=== PATIENT | male | born 1970 | race Caucasian/White ===

== ENCOUNTER 2024-02-16 13:38 | Inpatient (IN) | payer OTHER ==
[2024-02-16 14:04] VITALS: BMI 22.2
[2024-02-16] MEDS ORDERED: MAGNESIUM HYDROX 2400MG/30ML ORAL SUSPENSION 30 ML CUP PO PRN (15:56)
[2024-02-16] MEDS ORDERED: IBUPROFEN 400 MG TABLET (FP) PO PRN (15:56)
[2024-02-16] MEDS ORDERED: NALOXONE HCL 0.4 MG/ML VIAL IM PRN (15:56)
[2024-02-16] MEDS ORDERED: LOPERAMIDE HCL 2 MG CAPSULE PO PRN (15:56)
[2024-02-16] MEDS ORDERED: BENZOCAINE/MENTHOL (CHLORASEPTIC ) LOZENGE MM PRN (15:56)
[2024-02-16] MEDS ORDERED: MAG HYDROX/AL HYDROX/SIMETH 30 ML UNIT-DOSE CUP PO PRN (15:56)
[2024-02-16] MEDS ORDERED: POLYETHYLENE GLYCOL (HEALTHYLAX) 3350 17 GM PACKET PO PRN (15:56)
[2024-02-16] MEDS ORDERED: DICYCLOMINE HCL 10 MG CAPSULE PO PRN (15:56)
[2024-02-16] MEDS ORDERED: ACETAMINOPHEN 325 MG TABLET (FP) PO PRN (15:56)
[2024-02-16] MEDS ORDERED: IBUPROFEN 600 MG TABLET (FP) PO PRN (15:56)
[2024-02-16] MEDS ORDERED: BENZONATATE 200 MG CAPSULE PO PRN (15:56)
[2024-02-16] MEDS ORDERED: NALOXONE (NARCAN) HCL 4 MG/0.1 ML SPRAY NS PRN (15:56)
[2024-02-16] MEDS ORDERED: guaiFENesin 600 MG TABLET.ER (FP) PO PRN (15:56)
[2024-02-16] MEDS: TRIMETHOBENZAMIDE HCL 200MG/2ML INJ IM ONE (16:07)
[2024-02-16] MEDS: PRENATAL VITAMINS W/ FOLIC ACID TABLET (FP) PO SCH (17:31)
[2024-02-16] MEDS: methaDONE 40 MG, methaDONE 20 MG PO ONE (17:32)
[2024-02-16] MEDS: NICOTINE 14 MG/24 HOURS TOPICAL PATCH TD SCH (17:35)
[2024-02-16] MEDS: methaDONE HCL 10 MG TABLET PO ONE (17:44)
[2024-02-16] MEDS: BISMUTH SUBSALICYLATE 524 MG/30 ML PO PRN (18:00)
[2024-02-16] MEDS: THIAMINE 100 MG TABLET PO SCH (21:11)
[2024-02-16] MEDS: MELATONIN 5 MG TABLETS PO SCH (21:11)
[2024-02-16] MEDS: METHOCARBAMOL 500 MG TABLET PO PRN (21:11)
[2024-02-17] MEDS: methaDONE 40 MG, methaDONE 20 MG PO SCH (06:12)
[2024-02-17] MEDS ORDERED: methaDONE HCL 10 MG TABLET PO SCH (10:00)
[2024-02-17] MEDS: BICTEGRAV/EMTRICIT/TENOFOV (BIKTARVY) 50-200-25 MG TABLET PO SCH (10:36)
[2024-02-17 11:24] LABS: POTASSIUM 3.6 mmol/L (3.5-5.1)
[2024-02-17 11:37] LABS: ALBUMIN 3.8 g/dl (3.4-5.0); BLOOD UREA NITROGEN 18.7 mg/dL (7-18); CALCIUM 9.1 mg/dL (8.5-10.1)
[2024-02-17 11:39] LABS: CREATININE 1.2 mg/dL (0.55-1.3)
[2024-02-17 11:41] LABS: BILIRUBIN,TOTAL 0.9 mg/dL (0.2-1); TOT PROT 7.3 g/dl (6.4-8.2)
[2024-02-17 11:45] LABS: HEMATOCRIT 38.9 % (35.4-49); HEMOGLOBIN 12.6 GM/dL (11.7-16.9); MCH 25.2 pg (25.7-33.7); MCHC 32.5 g/dl (32.0-35.9); MEAN CELL VOLUME 77.5 fl (80-96); MEAN PLT VOLUME 7.2 fl (7.5-11.1); PLATELET COUNT 335 10^3/uL (134-434); RBC 5.02 M/mm3 (4.00-5.60); WHITE BLOOD COUNT 7.3 K/mm3 (4.0-10.0)
[2024-02-17] MEDS: methaDONE HCL 10 MG TABLET PO ONE (11:55)
[2024-02-17] MEDS: ONDANSETRON *ODT* 4 MG TABLET SL PRN (20:26)
[2024-02-18] MEDS: methaDONE HCL 40 MG DISPERSABLE TABLET PO ONE (09:23)
[2024-02-18] MEDS ORDERED: methaDONE HCL 40 MG DISPERSABLE TABLET PO ONE ×2 (10:00→11:23)
[2024-02-19 00:40] LABS: URINE APPEARANCE CLEAR; URINE BILIRUBIN NEGATIVE (NEGATIVE); URINE COLOR YELLOW; URINE GLUCOSE (UA) NEGATIVE (NEGATIVE); URINE KETONE NEGATIVE (NEGATIVE); URINE LEUK ESTERASE NEGATIVE (NEGATIVE); URINE NITRITE NEGATIVE (NEGATIVE); URINE PROTEIN NEGATIVE (NEGATIVE); URINE UROBILINOGEN 0.2 mg/dL (0.2-1.0)
[2024-02-19] MEDS: methaDONE 80 MG, methaDONE 10 MG PO ONE (08:50)
[2024-02-19] MEDS ORDERED: methaDONE 80 MG, methaDONE 10 MG PO ONE ×2 (10:00→11:25)
[2024-02-19] MEDS ORDERED: methaDONE HCL 10 MG TABLET PO ONE ×2 (10:00→11:25)
[2024-02-19 16:44] VITALS: RESP 16
[2024-02-19] MEDS: hydrOXYzine PAMOATE 25 MG CAPSULE (FP) PO PRN (22:07)
[2024-02-20] MEDS: methaDONE 80 MG, methaDONE 20 MG PO ONE (05:34)
[2024-02-20] MEDS ORDERED: methaDONE HCL 10 MG TABLET PO ONE (06:00)
[2024-02-20 09:26] VITALS: BP 113/73; PULSE 64; TEMP 98.7
== END 2024-02-20 11:50 | disposition other institution (70) | DRG 773 ==
LOC: YASAS 13:38 → Y3N 16:35
PROVIDERS: ADMIT Allergy & Immunology; ATTEND Surgery
PROC: HZ2ZZZZ Detoxification Services for Substance Abuse Treatment (ICD-10-PCS; principal; 2024-02-16)
DX: F11.23 Opioid dependence with withdrawal (principal); F14.20 Cocaine dependence, uncomplicated; F17.210 Nicotine dependence, cigarettes, uncomplicated; F32.A Depression, unspecified; Z21 Asymptomatic human immunodeficiency virus [HIV] infection status; Z86.19 Personal history of other infectious and parasitic diseases; Z56.0 Unemployment, unspecified
CPT/HCPCS: 36415; 80053; 80305; 80307; 81003; 85027; 86780; 87811; 93005; 93010; Q0162

== ENCOUNTER 2024-02-20 12:40 | Inpatient (IN) | payer OTHER ==
[2024-02-20] MEDS ORDERED: guaiFENesin 600 MG TABLET.ER (FP) PO PRN (13:49)
[2024-02-20] MEDS ORDERED: BENZONATATE 200 MG CAPSULE PO PRN (13:49)
[2024-02-20] MEDS ORDERED: NALOXONE (NARCAN) HCL 4 MG/0.1 ML SPRAY NS PRN (13:49)
[2024-02-20] MEDS ORDERED: NALOXONE HCL 0.4 MG/ML VIAL IVPUSH PRN (13:49)
[2024-02-20] MEDS ORDERED: MAGNESIUM HYDROX 2400MG/30ML ORAL SUSPENSION 30 ML CUP PO PRN (13:49)
[2024-02-20] MEDS ORDERED: IBUPROFEN 600 MG TABLET (FP) PO PRN (13:49)
[2024-02-20] MEDS ORDERED: IBUPROFEN 400 MG TABLET (FP) PO PRN (13:49)
[2024-02-20] MEDS ORDERED: NICOTINE POLACRILEX 4 MG GUM BUC PRN (13:49)
[2024-02-20] MEDS ORDERED: LOPERAMIDE HCL 2 MG CAPSULE PO PRN (13:49)
[2024-02-20] MEDS ORDERED: POLYETHYLENE GLYCOL (HEALTHYLAX) 3350 17 GM PACKET PO PRN (13:49)
[2024-02-20] MEDS: hydrOXYzine PAMOATE 25 MG CAPSULE (FP) PO PRN (20:26)
[2024-02-20] MEDS: THIAMINE 100 MG TABLET PO SCH (21:27)
[2024-02-20] MEDS: MELATONIN 5 MG TABLETS PO SCH (21:27)
[2024-02-21] MEDS ORDERED: methaDONE HCL 10 MG TABLET PO SCH (06:00)
[2024-02-21] MEDS: methaDONE 80 MG, methaDONE 20 MG PO SCH (06:09)
[2024-02-21] MEDS: BICTEGRAV/EMTRICIT/TENOFOV (BIKTARVY) 50-200-25 MG TABLET PO SCH (08:39)
[2024-02-21] MEDS: PRENATAL VITAMINS W/ FOLIC ACID TABLET (FP) PO SCH (10:20)
[2024-02-21] MEDS: NICOTINE 14 MG/24 HOURS TOPICAL PATCH TD SCH (10:20)
[2024-02-21] MEDS: METHOCARBAMOL 500 MG TABLET PO PRN (21:17)
[2024-02-22] MEDS: SUVOREXANT 10 MG TABLET PO PRN (21:35)
[2024-02-24] MEDS: NICOTINE POLACRILEX 4 MG LOZENGE BC PRN (10:01)
[2024-02-24] MEDS: MAG HYDROX/AL HYDROX/SIMETH 30 ML UNIT-DOSE CUP PO PRN (18:59)
[2024-02-24] MEDS: SUVOREXANT 10 MG TABLET PO PRN (21:28)
[2024-02-27] MEDS: BACLOFEN 10 MG TABLET (FP) PO SCH (14:22)
[2024-02-27] MEDS: GABAPENTIN 100 MG CAPSULE PO SCH (21:43)
[2024-02-27] MEDS: MELATONIN 5 MG TABLETS PO SCH (21:43)
[2024-02-27] MEDS: SUVOREXANT 10 MG TABLET PO PRN (21:44)
[2024-02-28] MEDS: BISMUTH SUBSALICYLATE 262 MG/15 ML BTL PO PRN (12:39)
[2024-02-28] MEDS: BISMUTH SUBSALICYLATE 524 MG/30 ML PO PRN (12:42)
[2024-02-29] MEDS: SUVOREXANT 10 MG TABLET PO PRN (21:19)
[2024-02-29] MEDS: BENZOCAINE/MENTHOL (CHLORASEPTIC ) LOZENGE MM PRN (21:19)
[2024-03-02] MEDS: SUVOREXANT 10 MG TABLET PO PRN (21:33)
[2024-03-04] MEDS: ACETAMINOPHEN 325 MG TABLET (FP) PO PRN (05:27)
[2024-03-05 07:24] VITALS: BP 139/87; PULSE 75; RESP 16; TEMP 97.3
== END 2024-03-05 09:16 | disposition home or self-care (01) | DRG 772 ==
LOC: YASAS 12:40 → Y3W 12:46
PROVIDERS: ADMIT Psychiatry & Neurology Pain Medicine; ATTEND Psychiatry & Neurology Pain Medicine
PROC: HZ42ZZZ Group Counseling for Substance Abuse Treatment, Cognitive-Behavioral (ICD-10-PCS; principal; 2024-02-20)
DX: F11.20 Opioid dependence, uncomplicated (principal); F10.20 Alcohol dependence, uncomplicated; F14.20 Cocaine dependence, uncomplicated; F17.220 Nicotine dependence, chewing tobacco, uncomplicated; F19.282 Other psychoactive substance dependence with psychoactive substance-induced sleep disorder; B20 Human immunodeficiency virus [HIV] disease; R20.2 Paresthesia of skin; Z79.899 Other long term (current) drug therapy; Z86.59 Personal history of other mental and behavioral disorders; Z86.19 Personal history of other infectious and parasitic diseases
CPT/HCPCS: J0475